=== PATIENT | female | born 1975 | race Caucasian/White ===

== ENCOUNTER 2018-06-27 10:43 | Emergency (ER) | payer BC ==
[~2018-06-27] VITALS: Ht 147.3 cm; Wt 47.4 kg
[2018-06-27 10:46] VITALS: BP 127/58; PULSE 105; RESP 20; Ht 147.3 cm; Wt 47.4 kg
--- NOTE | 2018-06-27 11:34 | ERD ---
ER Documentation Chief Complaint Chief Complaint possible od on guaiatussin AC, kept sipping on medicaiton all night HPI 42-year-old female presents to the emergency room for evaluation after possibly accidentally ingesting a larger amount of Guiatussin AC. The patient states that she was sipping approximately 80 cc worth of Guiatussin AC because of a cough and her partner was sleeping next to her. Patient's last dose was around 1 AM. It is now 11 AM. Patient denies any symptoms currently. She denies any headache drowsiness nausea. One episode of nonbloody nonbilious emesis. Patient denies any other issues currently. Denies suicidal intent. ROS All systems reviewed and are negative except as per history of present illness. Allergies Allergies: Coded Allergies: No Known Allergy (Unverified , 06/27/18) FmHx Family History: No diabetes Physical Exam Vitals Vital Signs Date Temp Pulse Resp B/P (MAP) Pulse Ox O2 O2 Flow FiO2 Time Delivery Rate 06/27/18 97.4 105 20 127/58 97 10:46 (81) Physical Exam General: Well developed, well nourished, no acute distress Head: Normocephalic, atraumatic. Eyes: EOM intact ENT: Moist mucous membranes Neck: Full ROM Respiratory: No respiratory distress Cardiovascular: Well perfused distally Abdominal: Nondistended : Deferred MSK: No edema, no unilateral swelling, 5/5 strength Neurologic: Alert and oriented, moving all extremities, normal speech, steady gait Skin: No rash Psych: Normal mood Procedures/MDM Patient likely has nontoxic ingestion. This was accidental and not intentional without evidence of suicidal or homicidal ideation. Patient is grossly asymptomatic currently. Poison Control Center was notified. They agree that the patient can be safely released and the patient does not have a toxic ingestion. Reassurance provided. Education provided. Patient is safe for discharge. The patient does not have an identifiable emergent medical condition that warrants inpatient hospitalization at this time. The patient is deemed safe for discharge with outpatient follow-up. We discussed follow up with the patient's primary care doctor within 24 to 48 hours as needed. We also discussed return to the emergency room for worsening symptoms or worsening condition. Outpatient referral: [None required] Departure Diagnosis: Primary Impression: Accidental overdose Encounter type: initial encounter Qualified Codes: T50.901A - Poisoning by unspecified drugs, medicaments and biological substances, accidental (unintentional), initial encounter Condition: Stable Patient Instructions: Overdose, Accidental (Adult) Referrals: [facility] YOU HAVE RECEIVED A MEDICAL SCREENING EXAM AND THE RESULTS INDICATE THAT YOU DO NOT HAVE A CONDITION THAT REQUIRES URGENT TREATMENT IN THE EMERGENCY DEPARTMENT. FURTHER EVALUATION AND TREATMENT OF YOUR CONDITION CAN WAIT UNTIL YOU ARE SEEN IN YOUR DOCTORS OFFICE WITHIN THE NEXT 1-2 DAYS. IT IS YOUR RESPONSIBILITY TO MAKE AN APPOINTMENT FOR FOLOW-UP CARE. IF YOU HAVE A PRIMARY DOCTOR --you should call your primary doctor and schedule an appointment IF YOU DO NOT HAVE A PRIMARY DOCTOR YOU CAN CALL OUR PHYSICIAN REFERRAL HOTLINE AT IF YOU CAN NOT AFFORD TO SEE A PHYSICIAN YOU CAN CHOSE FROM THE FOLLOWING [facility] [address] [facility]. [facility] [address] [facility] [facility] [address] [facility] [address] [facility]. [facility] [address] [facility]. [facility] [address]. [facility] YOU HAVE RECEIVED A MEDICAL SCREENING EXAM AND THE RESULTS INDICATE THAT YOU DO NOT HAVE A CONDITION THAT REQUIRES URGENT TREATMENT IN THE EMERGENCY DEPARTMENT. FURTHER EVALUATION AND TREATMENT OF YOUR CONDITION CAN WAIT UNTIL YOU ARE SEEN IN YOUR DOCTORS OFFICE WITHIN THE NEXT 1-2 DAYS. IT IS YOUR RESPONSIBILITY TO MAKE AN APPOINTMENT FOR FOLOW-UP CARE. IF YOU HAVE A PRIMARY DOCTOR --you should call your primary doctor and schedule and appointment IF YOU DO NOT HAVE A PRIMARY DOCTOR YOU CAN CALL OUR PHYSICIAN REFERRAL HOTLINE AT . IF YOU CAN NOT AFFORD TO SEE A PHYSICIAN YOU CAN CHOSE FROM THE FOLLOWING [facility]: [facility] [address] [place] [address] [facility] [address] [place] [address] [facility] [address] [place] [address] Additional Instructions: Call your primary care doctor TOMORROW for an appointment during the next 1 WEEK.Tell the unit secretary that you were referred from this facility.See the doctor sooner or return here if your condition worsens before your appointment time. TRENT LI MD Jun 27, 2018 11:34
== END 2018-06-27 12:02 | disposition home or self-care (01) ==
LOC: E/R 10:43
DX: T48.4X1A Poisoning by expectorants, accidental (unintentional), initial encounter (principal)
CPT/HCPCS: 99282